=== PATIENT | male | born 1955 | race Caucasian/White ===

== ENCOUNTER 2018-02-04 16:06 | Emergency (ER) | payer OTHER, BC ==
[~2018-02-04] VITALS: Ht 180.3 cm; Wt 95.0 kg
[~2018-02-04 16:06] MED LIST: ADULT ASA81 MG OR; BENZONATATE200 MG PO; BROMFED D1 PO; DOXYCYCL HYC100 MG PO; FLONASE NASAL50 MCG; GLYBURIDE5 MG OR; METFORMIN1000 MG OR; MUCINEX600 MG PO; NAPROSYN500 MG OR; NOVOLIN N1 ML SC; PENICILLN VK500 MG PO; PRILOSEC20 MG OR; ZOCOR20 MG OR
[2018-02-04 17:14] LABS: HEMATOCRIT 44.4 % (39.0-50.0); HEMOGLOBIN 15.5 g/dl (14.0-18.0); IMMATURE GRANULOCYTES 0.3 % (0.0-1.0); MEAN CELL VOLUME 93.7 fL CALC (80.0-100.0); MEAN CORPUSCULAR HGB 32.7 pG CALC (26.0-32.0); MEAN CORPUSCULAR HGB CONC 34.9 g/L CALC (32.0-36.0); NEUT# 12.21 thou/uL (1.82-7.42); RED BLOOD COUNT 4.74 mill/uL (4.70-6.10)
[2018-02-04 17:20] LABS: ALKALINE PHOSPHATASE 102 u/l (38-126); ANION GAP 16 (6-22 (CALC)); BILIRUBIN, TOTAL 0.5 mg/dL (0.0-1.4); BUN 15 mg/dL (8-23); BUN/CREATININE RATIO 15 (12-20 (CALC)); CARBON DIOXIDE 24 mmol/l (22-30); CHLORIDE 100 mmol/l (95-108); GFR > 60 ML/MIN (>=60 (CALC)); GFR FOR AFR.AMER. > 60 ML/MIN (>=60 (CALC)); POTASSIUM 4.4 mmol/l (3.5-5.1); SGOT/AST 38 u/l (19-48); SGPT/ALT 54 u/l (11-66); SODIUM 135 mmol/l (137-146); TOTAL PROTEIN 6.7 g/dL (6.3-8.2)
[2018-02-04 20:36] LABS: URINE BILIRUBIN - DIPSTICK NEGATIVE (NEGATIVE); URINE BLOOD DIPSTICK NEGATIVE (NEGATIVE); URINE COLOR YELLOW; URINE GLUCOSE - DIPSTICK 250 mg/dL (NEGATIVE); URINE KETONE 40 mg/dL (NEGATIVE); URINE LEUK ESTERASE NEGATIVE (Negative); URINE NITRITE - DIPSTICK NEGATIVE (Negative); URINE PH 5.5 (4.5-8.0); URINE PROTEIN - DIPSTICK NEGATIVE (NEG-TRACE); URINE UROBILINOGEN - DIPSTICK 0.2 E.U./dL (0.2)
[2018-02-04 20:41] LABS: URINE CLARITY CLEAR
[2018-02-04] MEDS ORDERED: MOTRIN800 MG PO (20:55)
[2018-02-04] MEDS ORDERED: LORTAB 5/3255 MG PO (20:55)
[2018-02-04 21:43] VITALS: BP 156/71
== END 2018-02-04 21:35 | disposition home or self-care (01) | DRG 605 ==
LOC: ED 16:06
PROVIDERS: Emergency Medicine
DX: S60.511A Abrasion of right hand, initial encounter (principal); S50.811A Abrasion of right forearm, initial encounter; S70.12XA Contusion of left thigh, initial encounter; S50.12XA Contusion of left forearm, initial encounter; I10 Essential (primary) hypertension; E11.9 Type 2 diabetes mellitus without complications; V23.4XXA Motorcycle driver injured in collision with car, pick-up truck or van in traffic accident, initial encounter
CPT/HCPCS: Q9967

== ENCOUNTER 2019-06-18 18:32 | Emergency (ER) | payer OTHER, BC ==
[~2019-06-18] VITALS: Ht 180.3 cm; Wt 100.0 kg
[~2019-06-18 18:32] MED LIST changes: +LORTAB 5/3255 MG PO; +MOTRIN800 MG PO
[2019-06-18 19:35] LABS: HEMATOCRIT 45.3 % (39.0-50.0); HEMOGLOBIN 15.8 g/dl (14.0-18.0); IMMATURE GRANULOCYTES 0.3 % (0.0-5.0); MEAN CELL VOLUME 92.8 fL CALC (80.0-100.0); MEAN CORPUSCULAR HGB 32.4 pG CALC (26.0-32.0); MEAN CORPUSCULAR HGB CONC 34.9 g/L CALC (32.0-36.0); NEUT# 5.13 thou/uL (1.82-7.42); RED BLOOD COUNT 4.88 mill/uL (4.70-6.10); RED CELL DISTRI WIDTH 12.4 % (11.5-15.5)
[2019-06-18 19:37] LABS: URINE BILIRUBIN - DIPSTICK NEGATIVE (NEGATIVE); URINE BLOOD DIPSTICK NEGATIVE (NEGATIVE); URINE COLOR YELLOW; URINE GLUCOSE - DIPSTICK 250 mg/dL (NEGATIVE); URINE KETONE NEGATIVE (NEGATIVE); URINE LEUK ESTERASE NEGATIVE (NEGATIVE); URINE NITRITE - DIPSTICK NEGATIVE (Negative); URINE PH 6.5 (4.5-8.0); URINE PROTEIN - DIPSTICK NEGATIVE (NEG-TRACE)
[2019-06-18 19:40] LABS: BARBITURATES NEGATIVE (NEGATIVE); COCAINE NEGATIVE (NEGATIVE); METHADONE NEGATIVE (NEGATIVE); OXCYCODONE NEGATIVE (NEGATIVE); TETRAHYDROCANNABIONOL NEGATIVE (NEGATIVE); TRICYLIC ANTIDEPRESSANTS NEGATIVE (NEGATIVE)
[2019-06-18 19:47] LABS: ALBUMIN 4.4 g/dL (3.2-5.0); ALKALINE PHOSPHATASE 100 u/l (38-126); ANION GAP 13 (6-22 (CALC)); BILIRUBIN, TOTAL 0.6 mg/dL (0.0-1.4); BUN 15 mg/dL (8-23); BUN/CREATININE RATIO 24 (12-20 (CALC)); CHLORIDE 98 mmol/l (95-108); CREATININE 0.7 mg/dL (0.7-1.3); GFR > 60 ML/MIN (>=60 (CALC)); GFR FOR AFR.AMER. > 60 ML/MIN (>=60 (CALC)); POTASSIUM 4.1 mmol/l (3.5-5.1); SGOT/AST 32 u/l (19-48); SODIUM 137 mmol/l (137-146); TOTAL PROTEIN 7.7 g/dL (6.3-8.2)
[2019-06-18 19:49] LABS: CARBON DIOXIDE 30 mmol/l (22-30)
[2019-06-18 19:55] LABS: MYOGLOBIN 78 ng/mL (0 - 121)
[2019-06-18] MEDS ORDERED: ANTIVERT PO (21:57)
[2019-06-18 22:00] VITALS: BP 147/72
== END 2019-06-18 22:10 | disposition home or self-care (01) | DRG 149 ==
LOC: ED 18:32
PROVIDERS: Emergency Medicine
DX: R42 Dizziness and giddiness (principal); R11.2 Nausea with vomiting, unspecified; R53.1 Weakness; I10 Essential (primary) hypertension; E11.9 Type 2 diabetes mellitus without complications

== ENCOUNTER 2020-02-21 08:21 | Emergency (ER) | payer OTHER, BC ==
[~2020-02-21] VITALS: Ht 180.3 cm; Wt 94.5 kg
[~2020-02-21 08:21] MED LIST changes: +ANTIVERT PO
[2020-02-21] MEDS ORDERED: CHERATUSSIN PO (09:53)
[2020-02-21 11:48] VITALS: BP 131/64
[2020-02-21] MEDS ORDERED: ATORVASTATIN CA80 MG PO (11:53)
[2020-02-21] MEDS ORDERED: LISINOP/HCTZ1 TA2 PO (11:54)
--- NOTE | 2020-03-04 09:28 | NUR ---
Notified patient of positive Covid results. Patient states he is feeling much better and denies SOB or fever. Advised patient to continue to quarantine until contacted by the [facility] with further instructions. Advised patient to return to the ED with difficulty breathing or other urgent needs. Patient verbalized understanding.
== END 2020-02-21 11:48 | disposition home or self-care (01) | DRG 179 ==
LOC: ED 08:21
DX: U07.1 COVID-19 (principal); E11.9 Type 2 diabetes mellitus without complications; I10 Essential (primary) hypertension; Z79.4 Long term (current) use of insulin